=== PATIENT | female | born 1935 | race Caucasian/White ===

== ENCOUNTER 2017-03-30 12:47 | Emergency (ER) | payer MEDICARE, OTHER ==
[~2017-03-30] VITALS: Ht 165.1 cm; Wt 80.0 kg
[2017-03-30 12:53] VITALS: Ht 165.1 cm; Wt 80.0 kg
[2017-03-30] MEDS ORDERED: LIDOCAINE 2%/EPI MPF (SDV) 20 ML VIAL INJ ONE (14:30)
[2017-03-30] MEDS ORDERED: DIPHTH/TET/ACEL PERTUSS (ADULT) 0.5 ML VIAL IM* ONE (15:00)
--- NOTE | 2017-03-30 15:51 | RADRPT ---
PROCEDURE: Left tibia and fibula radiographs CLINICAL INDICATION: Trauma TECHNIQUE: 2 views of the left tibia and fibula COMPARISON: None FINDINGS: There is soft tissue swelling anterior to the mid to distal shaft of the tibia. No radiopaque forei gn body is seen and there is no gas. No fracture is present. The joint spaces are intact with antony omic alignment. IMPRESSION: Soft tissue swelling superficial to mid to distal left tibial shaft. No fracture or dislocation. .Sammy Erickson MD, MD Date Time Electronically viewed and signed by .Sammy Erickson MD, MD on 03/30/2017 15:50 .A/
[2017-03-30] MEDS ORDERED: TYL500 PO (16:39)
[2017-03-30] MEDS ORDERED: CEPH-442 PO (16:40)
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
[2017-03-30 17:04] VITALS: BP 128/88; PULSE 89; RESP 18
== END 2017-03-30 17:06 | disposition home or self-care (01) ==
LOC: FTE 12:47
DX: S81.812A Laceration without foreign body, left lower leg, initial encounter (principal); W01.198A Fall on same level from slipping, tripping and stumbling with subsequent striking against other object, initial encounter; Y92.811 Bus as the place of occurrence of the external cause; Z23 Encounter for immunization
CPT/HCPCS: 73590; 90471; 90715

== ENCOUNTER 2017-04-02 13:06 | Emergency (ER) | payer MEDICARE, OTHER ==
[~2017-04-02] VITALS: Wt 67.0 kg
[~2017-04-02 13:06] MED LIST: CEPH-442 PO; TYL500 PO
[2017-04-02] MEDS ORDERED: STERILE WATER 1L IRRIG BTL IRR STA (13:33)
[2017-04-02] MEDS ORDERED: LIDOCAINE 1% (MDV) 10 ML INJ INJ STA (13:33)
--- NOTE | 2017-04-02 13:50 | ERD ---
ER Documentation Chief Complaint Date/Time DATE: 04/02/17 TIME: 13:49 Chief Complaint LEFT LEG WOUND CHECK HPI 81-year-old female presents for a wound check on left leg laceration sustained 2 days ago. She has no fevers, vomiting, difficulty breathing, additional complaints. ROS All systems reviewed and are negative except as per history of present illness. Medications Home Meds Active Scripts Cephalexin* (Keflex*) 250 Mg Capsule, 250 MG PO BID, #14 CAP Prov:RAMON,AARON C 03/30/17 Acetaminophen* (Tylenol*) 500 Mg Tab, 500 MG PO Q4H Y for MILD PAIN LEVEL 1-3 for 3 Days, TAB Prov:RAMON,AARON C 03/30/17 Allergies Allergies: Coded Allergies: No Known Allergy (Unverified , 03/30/17) PMhx/Soc History of Surgery: Yes (FILTER IN PLACE) Anesthesia Reaction: No Hx Neurological Disorder: No Hx Respiratory Disorders: No Hx Cardiac Disorders: Yes (HYPOTENSION/HYPERLIPIDEMIA) Hx Psychiatric Problems: No Hx Miscellaneous Medical Probl: Yes (HX DVT AND PE) Hx Alcohol Use: No Hx Substance Use: No Hx Tobacco Use: No Physical Exam Vitals Vital Signs Date Time Temp Pulse Resp B/P Pulse Ox O2 Delivery O2 Flow Rate FiO2 04/02/17 13:07 98.1 89 18 139/78 99 Physical Exam Const: [], [id number] Head: Atraumatic Eyes: Normal Conjunctiva ENT: Normal External Ears, Nose and Mouth. Neck: Full range of motion..~ No meningismus. Resp: Clear to auscultation bilaterally Cardio: Regular rate and rhythm, no murmurs Abd: Soft, non tender, non distended. Normal bowel sounds Skin: No petechiae or rashes Back: No midline or flank tenderness Ext: No cyanosis, or edema. Healing laceration the left melgar without erythema, bleeding, discharge, deficits, signs of ischemia. Neur: Awake and alert Psych: Normal Mood and Affect Results 24 hrs Current Medications Medications (Trade) Dose Ordered Sig/Bettye Route PRN Reason Start Time Stop Time Status Last Admin Dose Admin Diphtheria/ Tetanus/Acell Pertussis (Adacel) 0.5 ml ONCE ONCE IM 04/02/17 14:00 04/02/17 14:00 DC Sterile Water (Water Sterile For Irrigation) 1,000 ml ONCE STAT IRR 04/02/17 13:33 04/02/17 13:41 DC Lidocaine HCl (Lidocaine 1% (Mdv) 10 ml) 10 ml ONCE STAT INJ 04/02/17 13:33 04/02/17 13:41 DC Procedures/MDM Satisfactorily healing left leg laceration. Patient was discharged home with instructions for suture removal in 1 week. She should return sooner for fevers , redness, new symptoms. No signs of infection, deficits, ischemia, additional complications due to laceration. Departure Diagnosis: Primary Impression: Encounter for wound re-check Condition: Stable Patient Instructions: Wound Check, Lac F/U (No Infection) Additional Instructions: Suture removal 1 week. Recheck sooner for redness, fevers, new symptoms. GUI BERMUDEZ MD Apr 02, 2017 13:50
[2017-04-02] MEDS ORDERED: DIPHTH/TET/ACEL PERTUSS (ADULT) 0.5 ML VIAL IM ONE (14:00)
== END 2017-04-02 14:09 | disposition home or self-care (01) ==
LOC: FTE 13:06
DX: Z48.01 Encounter for change or removal of surgical wound dressing (principal)
CPT/HCPCS: 99283

== ENCOUNTER 2017-04-10 09:43 | Emergency (ER) | payer MEDICARE, OTHER ==
[~2017-04-10] VITALS: Ht 160 cm; Wt 65.5 kg
[2017-04-10 09:46] VITALS: Ht 160 cm; Wt 65.5 kg
--- NOTE | 2017-04-10 12:22 | RADRPT ---
PROCEDURE: Chest x-ray CLINICAL INDICATION: Preop TECHNIQUE: Chest single view COMPARISON: None FINDINGS: The heart is normal in size. The pulmonary vessels are normal in caliber. There is mild atheroscler otic aortic calcification. Patchy bilateral lower lung infiltrates are seen suspicious for an pneum onia. The costophrenic angles sharp. Bones are osteopenic. IMPRESSION: 1. Patchy/ground-glass bilateral lower lung densities which may represent atelectasis or pneumonia. Clinical correlation is advised. 2. Atherosclerotic aortic calcification. 3. Osteopenia RPTAT: HH .Benson Leggett MD, Date Time Electronically viewed and signed by .Benson Leggett MD, on 04/10/2017 12:21 .W/
--- NOTE | 2017-04-10 12:41 | ERD ---
ER Documentation Chief Complaint Date/Time DATE: 04/10/17 TIME: 12:39 Chief Complaint LEFT LOWER LEG SUTURE REMOVAL HPI 81-year-old female comes in for suture removal to left lower leg that was repaired about 8-9 days ago, she also comes in for a preop chest x-ray before an IVC filter removal by pulmonology, as she comes in with a prescription order written by Dr. Mccarty. Suture removal is for a laceration to the left lower leg, and was from a blunt injury, she denies any pain, fevers, chills or drainage. Patient reports history of pulmonary embolus, has an IVC filter, she has not had any fevers, chills, cough, chest pain or shortness of breath. ROS All systems reviewed and are negative except as per history of present illness. Medications Home Meds Active Scripts Cephalexin* (Keflex*) 250 Mg Capsule, 250 MG PO BID, #14 CAP Prov:RAMON,AARON C 03/30/17 Acetaminophen* (Tylenol*) 500 Mg Tab, 500 MG PO Q4H Y for MILD PAIN LEVEL 1-3 for 3 Days, TAB Prov:RAMONBETSEYAARON C 03/30/17 Allergies Allergies: Coded Allergies: No Known Allergy (Unverified , 04/10/17) PMhx/Soc History of Surgery: Yes (FILTER IN PLACE) Anesthesia Reaction: No Hx Neurological Disorder: No Hx Respiratory Disorders: No Hx Cardiac Disorders: Yes (HYPOTENSION/HYPERLIPIDEMIA) Hx Psychiatric Problems: No Hx Miscellaneous Medical Probl: Yes (HX DVT AND PE) Hx Alcohol Use: No Hx Substance Use: No Hx Tobacco Use: No Smoking Status: Never smoker Physical Exam Vitals Vital Signs Date Time Temp Pulse Resp B/P Pulse Ox O2 Delivery O2 Flow Rate FiO2 04/10/17 09:46 98.2 94 18 120/74 95 Physical Exam General: Well-developed, well-nourished. The patient appears in no acute distress. HEENT: Head is normocephalic, atraumatic. No scleral icterus. Neck: Supple. Nontender. Lungs: Clear to auscultation. Normal air movement. Heart: Regular rate and rhythm. S1 and S2 are normal. No murmurs, gallops, or rubs. Abdomen: Soft, nontender, nondistended. Bowel sounds are normoactive. Extremities: No clubbing or cyanosis. Normal pulses. Moving extremities x 4. No weakness. Neurologic: Alert and oriented 3. No focal deficits. Skin: 5 cm laceration over the lower left extremity. There are21 simple interrupted sutures intact, no dehiscence, erythema or drainage. Results 24 hrs DIAGNOSTIC IMAGING REPORT Patient: CHRISTIANO ELY : 1935 Age: 81 Sex: F MR #: [id number] DOS: 04/10/17 1132 Ordering MD: BRITTNEY CH PA-C Location: [facility] Room/Bed: PROCEDURE: Chest x-ray CLINICAL INDICATION: Preop TECHNIQUE: Chest single view COMPARISON: None FINDINGS: The heart is normal in size. The pulmonary vessels are normal in caliber. There is mild atherosclerotic aortic calcification. Patchy bilateral lower lung infiltrates are seen suspicious for an pneumonia. The costophrenic angles sharp. Bones are osteopenic. IMPRESSION: 1. Patchy/ground-glass bilateral lower lung densities which may represent atelectasis or pneumonia. Clinical correlation is advised. 2. Atherosclerotic aortic calcification. 3. Osteopenia RPTAT: HH .Benson Leggett MD, MD Date Time Electronically viewed and signed by .Benson Leggett MD, MD on 04/10/2017 12:21 .W/ CC: BRITTNEY CH PA-C Procedures/MDM Suture Removal by me: Sutures removed with tweezers and scissors without incident. Wound was covered with Steri-Strips. Wound shows no evidence of infection, foreign body, neurologic injury, vascular injury, open joint or tendon laceration. Patient to follow up PRN. Chest x-ray was performed, shows atelectasis versus evidence of infiltrate, patient does not have any fever, cough, lung sounds are clear. She will be discharged to be follow-up with her research physicist. The case was reviewed and discussed with Dr. Crain who agrees with the plan of care including labs, treatment, and advanced imaging as appropriate. Departure Diagnosis: Primary Impression: Pre-op testing Additional Impression: Encounter for removal of sutures Condition: Good Patient Instructions: Suture Removal, No Complication BRITTNEY CH PA-C Apr 10, 2017 12:41
== END 2017-04-10 12:43 | disposition home or self-care (01) ==
LOC: FTE 09:43
DX: Z01.818 Encounter for other preprocedural examination (principal); R07.9 Chest pain, unspecified
CPT/HCPCS: 71010